=== PATIENT | female | born 1990 | race American Indian/Alaskan Native ===

== ENCOUNTER 2017-06-17 15:30 | Emergency (ER) | payer MEDICAID ==
[2017-06-17] MEDS ORDERED: Sodium Chloride 0.9% 1,000 ML IV ONE (16:15)
[2017-06-17] MEDS ORDERED: Iopamidol 755 Mg/ML 100 ML Bottle IV ONE (16:47)
[2017-06-17] MEDS ORDERED: HYDROmorphone 2 MG/ML SDV IM ONE (18:10)
[2017-06-17] MEDS ORDERED: Acetaminophen/oxyCODONE 325-5 MG Tab PO ONE (18:15)
[2017-06-17] MEDS ORDERED: Ondansetron 8 MG Tab.DIS PO ONE (18:35)
[2017-06-17 19:08] VITALS: BP 128/72
--- NOTE | 2017-06-19 10:18 | ER ---
DATE SEEN: 06/17/2017 CORRECTION: The patient's ultrasound is not available on June 18, at 1300 hours; but is June 19, at 1300 hours. The patient was seen at 1550 hours and has a prescription written for Percocet 20 tablets one q.4-6 hours p.r.n. for pain. If she has marked pain in the interval that is excessive, she is to return to the ER immediately. /[id number] EDWIN/TESS DOMINIQUE
--- NOTE | 2017-06-20 11:05 | ER ---
DATE SEEN: 06/17/2017 HISTORY OF PRESENT ILLNESS: The patient had 3 days' duration of right lower quadrant abdominal pain, this is increasing. She has also midepigastric discomfort. She has diarrhea for the past week. She has no recent antibiotic use. (No suggestion rational to be concerned that she might have Clostridium difficile.) However, it can occur spontaneously without having been exposed to antibiotics. It can be exposed by aforementioned environment. The pain in her right lower quadrant increases with walking. Last menstrual period was 06/03/2017. She is a 4, para 4-0-0-4. She is a single parent. She smokes half a pack of cigarettes per day. No diabetes, heart disease, high blood pressure, or asthma. Currently, her pain is 9/10 in intensity. No previous history of renal stones, dehydration, alcohol in excess, or recent fever. REVIEW OF SYSTEMS: Negative except as noted above. Denies sinusitis, sore throat, cough, chest pain, shortness of breath, recent nausea, vomiting, or constipation. She has diarrhea, but that is not new for her. Denies frequency, urgency, or dysuria. Denies hematuria. Has [id number] new flank pain on the right side, but most of her pain is in the right lower quadrant. Denies musculoskeletal complaints. Denies psychiatric issues. NEURO: Denies paresis, weakness, or numbness. PHYSICAL EXAMINATION: VITAL SIGNS: Blood pressure 116/82, heart rate 101, respirations 18, oxygen saturation 98% on room air, and temperature 36.6 degrees. CONSTITUTIONAL: The patient is overweight, appropriately dressed. Wears glasses. She is attended by her mother. She has fair dentition. PHARYNX: Without erythema. No cervical adenopathy. No thyromegaly. TMs negative. Nares negative. LUNGS: Clear without rales, rhonchi, or wheezes. HEART: S1, S2. No irregular rate and rhythm. No sinus tachycardia. ABDOMEN: Soft. Mild guarding, right lower quadrant. No rebound. No heel tap rebound. No CVA percussion tenderness. PELVIC: Exam not performed. DIAGNOSTIC STUDIES: A CT was performed of the abdomen and demonstrated a 7 x 5 cm right ovarian cyst. She has a mild amount of free fluid in the pelvis. Liver, no focal abnormalities noted. Right adrenal gland has attenuated lesion, either lipoma or myolipoma and similar in the left adrenal gland. Pancreas is negative. A 7-mm calcification in the superior aspect of the left kidney, could reflect calcification of the outer cortex or a tiny cyst or nonobstructive intrarenal calculus. No ureteral dilation. No hydroureter noted. No stones noted. There is a right lower lobe pulmonary nodule, 3.5 mm, it will need further followup. DIAGNOSES: 1. Right ovarian cyst causing her pain. 2. Rule out torsion, right ovarian cyst. The patient's ovarian cyst with possible torsion has been discussed with the patient. If it is completely torsed it could cause infarction and require surgical extirpation, and/or she potentially could lose her ovary. She would like not to go to a different medical center for ultrasound. Ultrasound is not available this evening. It will be done after 1300 hours, 06/18/2017. The patient has received 2 mg of Dilaudid IV for pain relief and also a liter of normal saline, and also will be getting Percocet for pain relief. Follow up tomorrow and get further ultrasound studies done. Once this is completed, she should talk to the ER doctor in the emergency room at [facility]. If she is markedly worse, she may return to the ED this evening. /[id number] EDWIN/TESS
== END 2017-06-17 19:20 | disposition home or self-care (01) ==
LOC: FB.ED 15:30
DX: N83.201 Unspecified ovarian cyst, right side (principal); F17.210 Nicotine dependence, cigarettes, uncomplicated
CPT/HCPCS: 36415; 74177; 80053; 81001; 81025; 85025; 96360; 96372; 99284; A9270; J1170; J7040; Q9967

== ENCOUNTER 2017-07-19 07:49 | Day surgery (SDC) | payer MEDICAID ==
[2017-07-19] MEDS ORDERED: Lactated Ringers 1,000 ML IV SCH (08:15)
[2017-07-19] MEDS ORDERED: Sodium Chloride 0.9% 10 ML Syringe FLUSH PRN (08:15)
[2017-07-19] MEDS ORDERED: Midazolam 1 MG/ML 2 ML SDV IV ONE (09:50)
[2017-07-19] MEDS ORDERED: Propofol 200 MG/20 ML SDV IV ONE (09:50)
[2017-07-19] MEDS ORDERED: Lidocaine 2% 100 MG/5 ML Syringe IVPUSH ONE (09:50)
--- NOTE | 2017-07-19 10:18 | PCM.OPNOTE ---
- General Post-Op/Procedure Note Date of Surgery/Procedure: 07/19/17 Operative Procedure(s): egd with bx Findings: gastritis hiatal hernia ?esophageal hyperplasia Pre Op Diagnosis: epigastric abd pain Post-Op Diagnosis: gastritis. hiatal hernia. ?esophageal hyperplasia Anesthesia Technique: MAC Primary Surgeon: Ramu Lloyd Anesthesia Provider: Andrew Draper Pathology: gastric distal esophagus Complications: None Condition: Good Free Text/Narrative:: see dictation
--- NOTE | 2017-07-19 10:32 | OR ---
DATE OF OPERATION: 07/19/2017 SURGEON: Ramu Lloyd MD PROCEDURE PERFORMED: Esophagogastroduodenoscopy with cold forceps biopsy. PREOPERATIVE DIAGNOSIS: Epigastric abdominal pain. POSTOPERATIVE DIAGNOSIS: Gastritis, small hiatal hernia, questionable hyperplastic polyps of the esophagus. INDICATIONS FOR PROCEDURE: This is a 27-year-old female who was referred with a history of epigastric abdominal discomfort. She was offered and accepted an EGD. DESCRIPTION OF PROCEDURE: After an excellent IV sedation was administered, bite block was inserted. Flexible endoscope was passed down the esophagus without difficulty into the stomach. Stomach was insufflated. Scope was passed through the pylorus to the second portion of the duodenum and slowly withdrawn. The following findings were noted: The duodenum was unremarkable. Stomach demonstrated a small hiatal hernia. Diffuse gastritis was noted, multiple biopsies were taken. Distal esophagus, GE junction measured approximately 40 cm. Throughout the entire esophagus, there were multiple small polypoid lesions very suggestive of hyperplasia. Random biopsies were taken throughout, and this was submitted in one container. Otherwise, the esophageal exam was unremarkable. Stomach was deflated. Scope was removed. The patient tolerated the procedure well, and was taken to recovery in good condition. /[id number] /MODL
[2017-07-19 11:34] VITALS: BP 113/72
== END 2017-07-19 11:10 | disposition home or self-care (01) ==
LOC: FB.SDS 07:49
PROVIDERS: ATTEND Surgery
DX: K29.50 Unspecified chronic gastritis without bleeding (principal); K20.9 Esophagitis, unspecified; K44.9 Diaphragmatic hernia without obstruction or gangrene; Z88.8 Allergy status to other drugs, medicaments and biological substances; Z79.899 Other long term (current) drug therapy; Z90.49 Acquired absence of other specified parts of digestive tract; F17.210 Nicotine dependence, cigarettes, uncomplicated
CPT/HCPCS: 43239; 81025; 88305; 88313; 88342; J2250; J2704; J7120

== ENCOUNTER 2018-02-21 21:00 | Emergency (ER) | payer MEDICAID ==
[2018-02-21] MEDS ORDERED: hydrOXYzine HCl 50 MG/ML SDV IM ONE (21:18)
[2018-02-21] MEDS ORDERED: Meperidine PF 50 MG/ML Syringe IM ONE (21:18)
[2018-02-21 21:45] VITALS: BP 135/86
--- NOTE | 2018-02-22 00:16 | ER ---
DATE SEEN: 02/21/2018 REASON FOR VISIT: Headache. HISTORY OF PRESENT ILLNESS: This is a 27-year-old female complaining of pounding headache since this morning on the left side. The pain is pulsating and around the left ear. Nothing seems to help. Associated with some photosensitivity typical of cluster headaches. REVIEW OF SYSTEMS: Denies fever or chills. No chest pain. MEDICATIONS: Reviewed. PAST MEDICAL HISTORY: Please see the electronic record. PHYSICAL EXAMINATION: VITAL SIGNS: Blood pressure is normal, pulse is 104, and temp 98.2. HEAD: Normocephalic. EYES: Normal. Pupils are equal and reactive to light. EARS: TMs intact. Canals patent. NECK: Supple. NEUROLOGIC: Normal. IMPRESSION: Headache. TREATMENT: Demerol and Vistaril. Fluids and follow up p.r.nLona /[id number] MARY/TESS
== END 2018-02-21 21:56 | disposition home or self-care (01) ==
LOC: FB.ED 21:00
DX: R51 Headache (principal)
CPT/HCPCS: 96372; 99283; J2175; J3410

== ENCOUNTER 2018-03-23 18:34 | Emergency (ER) | payer MEDICAID ==
[2018-03-23] MEDS ORDERED: Ondansetron 8 MG Tab.DIS PO ONE (18:41)
[2018-03-23] MEDS ORDERED: SUMAtriptan 6 MG/0.5 ML SDV SUBCUT STA (18:42)
--- NOTE | 2018-03-23 18:46 | EDM.PDOC ---
ED HPI GENERAL MEDICAL PROBLEM - General Stated Complaint: headache Time Seen by Provider: 03/23/18 18:34 Source of Information: Reports: Patient, Family History Limitations: Reports: Other (poor historian) - History of Present Illness INITIAL COMMENTS - FREE TEXT/NARRATIVE: 27 y.o.w.f came with her 2 children and mom to the ed due to nausea, photophobia and headache. Pt stated, she was diagnosed with cluster headache and gets always Dilaudid when she goes to the ED. No trauma. No vomiting no other acute medical issues. BP 111/81 Temp 36.7 RR 16 Pulse 81 Pulse ox 98% Onset Date: 03/23/18 Onset Time: 12:00 Duration: Hour(s):, Constant Location: Reports: Head Quality: Reports: Burning, Dull, Pressure, Stabbing, Throbbing Severity: Moderate Improves with: Reports: Medication (Dilaudid), Other (dilaudid) Context: Reports: Other Associated Symptoms: Reports: Other (nausea) Headache Pain Score (Numeric/FACES): 10 - Related Data Allergies Allergy/AdvReac Type Severity Reaction Status Date / Time ketorolac tromethamine Allergy Seizure Verified 02/21/18 21:28 [From Toradol] morphine Allergy Abdominal Verified 02/21/18 21:28 Pain Home Meds: Home Meds NK [No Known Home Meds] 02/21/18 [History] Past Medical History HEENT History: Reports: Impaired Vision Cardiovascular History: Reports: None Other Cardiovascular History: patient denies any heart problems Respiratory History: Reports: None Other Respiratory History: HX 11 YR SMOKER Gastrointestinal History: Reports: GERD, Other (See Below) Other Gastrointestinal History: gallbladder disease Genitourinary History: Reports: None 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: Musculoskeletal History: Reports: None Neurological History: Reports: Other (See Below) Other Neuro History: CLUSTER HEADACHE SYNDROME, COGNITIVE DEVELOPMENTAL DELAY Psychiatric History: Reports: Addiction, Developmental Delay Other Psychiatric History: NICOTINE ADDICATION AND EXCESSIVE CAFFINE ABUSE Endocrine/Metabolic History: Reports: Obesity/BMI 30+ Hematologic History: Reports: Anemia Immunologic History: Reports: None Oncologic (Cancer) History: Reports: None Dermatologic History: Reports: None - Past Surgical History Head Surgeries/Procedures: Reports: None HEENT Surgical History: Reports: Tonsillectomy Cardiovascular Surgical History: Reports: None Respiratory Surgical History: Reports: None GI Surgical History: Reports: Cholecystectomy Endocrine Surgical History: Reports: None Dermatological Surgical History: Reports: None Social & Family History - Family History Family Medical History: Noncontributory - Caffeine Use Caffeine Use: Reports: Coffee, Soda ED ROS GENERAL - Review of Systems Review Of Systems: See Below Constitutional: Reports: No Symptoms HEENT: Reports: No Symptoms, Other (H/A and nausea) Respiratory: Reports: No Symptoms Cardiovascular: Reports: No Symptoms Endocrine: Reports: No Symptoms GI/Abdominal: Reports: No Symptoms : Reports: No Symptoms Musculoskeletal: Reports: No Symptoms Skin: Reports: No Symptoms Neurological: Reports: No Symptoms Psychiatric: Reports: No Symptoms Hematologic/Lymphatic: Reports: No Symptoms Immunologic: Reports: No Symptoms ED EXAM, GENERAL - Physical Exam Exam: See Below Exam Limited By: Other (poor historian) General Appearance: Obese Eye Exam: Bilateral Eye: Normal Inspection Ears: Normal External Exam Ear Exam: Bilateral Ear: Auricle Normal Nose: Normal Inspection, Normal Mucosa, No Blood Throat/Mouth: Normal Inspection, Normal Lips, Normal Gums, Normal Oropharynx, Normal Voice, No Airway Compromise Head: Atraumatic, Normocephalic Neck: Normal Inspection, Supple, Non-Tender, Full Range of Motion Respiratory/Chest: No Respiratory Distress, Lungs Clear, Normal Breath Sounds, No Accessory Muscle Use, Chest Non-Tender Cardiovascular: Normal Peripheral Pulses, Regular Rate, Rhythm, No Edema, No Gallop, No JVD, No Murmur, No Rub Peripheral Pulses: 1+: Brachial (R) GI/Abdominal: Normal Bowel Sounds, Soft, Non-Tender, No Organomegaly, No Distention, No Abnormal Bruit, No Mass, Pelvis Stable (Female) Exam: Deferred Rectal (Female) Exam: Deferred Back Exam: Normal Inspection, Full Range of Motion Extremities: Normal Inspection, Normal Range of Motion, Non-Tender, No Pedal Edema, Normal Capillary Refill Neurological: Alert, Oriented, CN II-XII Intact, Normal Cognition, Normal Gait, No Motor/Sensory Deficits Psychiatric: Normal Affect, Normal Mood Skin Exam: Warm, Dry, Intact, Normal Color, No Rash Lymphatic: No Adenopathy Course - Vital Signs Text/Narrative:: 27 y.o.w.f came with her 2 children and mom to the ed due to nausea, photophobia and headache. Pt stated, she was diagnosed with cluster headache and gets always Dilaudid when she goes to the ED. No trauma. No vomiting no other acute medical issues. BP 111/81 Temp 36.7 RR 16 Pulse 81 Pulse ox 98% PE: obese w f with headache Impression: Cluster H/A Tx: Zofran. Imitrex, NS Solumedrol, Dilaudid. Please see note below 9.05 pm: Consultation Dr. Zamorano.........Neurologist, Ericka Burnett: Give whatever brings her out of your ED, Dilaudid is ok. Reexam: Improved Plan: D/C with instructions Last Recorded V/S: Last Vital Signs Temp 36.7 C 03/23/18 18:38 Pulse 84 03/23/18 18:38 Resp 16 03/23/18 18:38 BP 111/81 03/23/18 18:38 Pulse Ox 100 03/23/18 18:38 - Orders/Labs/Meds Meds: Medications Discontinued Medications Generic Name Dose Route Start Last Admin Trade Name Vero PRN Reason Stop Dose Admin Hydromorphone HCl 0.25 mg 03/23/18 21:07 03/23/18 21:21 Dilaudid IVPUSH 03/23/18 21:08 0.25 mg ONETIME ONE Administration Sodium Chloride 1,000 mls @ 999 mls/hr 03/23/18 19:18 03/23/18 20:01 Normal Saline IV 03/23/18 20:18 999 mls/hr .BOLUS ONE Administration Methylprednisolone Sodium Succinate 125 mg 03/23/18 19:19 03/23/18 20:01 Solu-Medrol IVPUSH 03/23/18 19:20 125 mg ONETIME ONE Administration Ondansetron HCl 8 mg 03/23/18 18:41 03/23/18 19:00 Zofran Odt PO 03/23/18 18:42 8 mg ONETIME ONE Administration Sumatriptan Succinate 6 mg 03/23/18 18:42 03/23/18 19:02 Imitrex SUBCUT 03/23/18 18:43 6 mg ONETIME STA Administration Departure - Departure Time of Disposition: 21:27 Disposition: Home, Self-Care 01 Condition: Good Clinical Impression: Cluster headache, episodic Qualifiers: Intractability: intractable Qualified Code(s): G44.011 - Episodic cluster headache, intractable - Discharge Information *PRESCRIPTION DRUG MONITORING PROGRAM REVIEWED*: Yes *COPY OF PRESCRIPTION DRUG MONITORING REPORT IN PATIENT RONAN: Yes Instructions: Recurrent Migraine Headache, [id number] Referrals: PCP,None [Primary Care Provider] - Forms: ED Department Discharge, ED Return to Work/School Form Additional Instructions: Please f/u with your PMD or neurologist, please cont your meds, please be observed by your mom for next 8 hours, please come back to the ed if your symptoms get worse acutely
[2018-03-23] MEDS ORDERED: Sodium Chloride 0.9% 1,000 ML IV ONE (19:18)
[2018-03-23] MEDS ORDERED: methylPREDNISolone Sodium Succinate 125 MG/2 ML SDV IVPUSH ONE (19:19)
[2018-03-23 19:31] VITALS: BP 111/81
[2018-03-23] MEDS ORDERED: HYDROmorphone 2 MG/ML SDV IVPUSH ONE (21:07)
== END 2018-03-23 21:40 | disposition home or self-care (01) ==
LOC: FB.ED 18:34
DX: G44.011 Episodic cluster headache, intractable (principal); Z88.5 Allergy status to narcotic agent; Z88.6 Allergy status to analgesic agent
CPT/HCPCS: 96361; 96372; 96374; 99283; A9270; J1170; J2930; J3030; J7030

== ENCOUNTER 2018-09-03 01:57 | Emergency (ER) | payer MEDICAID ==
[2018-09-03] MEDS ORDERED: SUMAtriptan 6 MG/0.5 ML SDV SUBCUT ONE (02:09)
[2018-09-03] MEDS ORDERED: Ondansetron 8 MG Tab.DIS PO ONE (02:09)
--- NOTE | 2018-09-03 02:14 | EDM.PDOC ---
ED HPI GENERAL MEDICAL PROBLEM - General Stated Complaint: HEADACHE Time Seen by Provider: 09/03/18 01:57 Source of Information: Reports: Patient, Family History Limitations: Reports: No Limitations - History of Present Illness INITIAL COMMENTS - FREE TEXT/NARRATIVE: 28 y.o.NA came to the ed due to a classic migraine H/A with Nausea, photophobia and pain behind her left and right eye. No trauma, pt denies . No F/C no other acute medical issues. BP 140/94 RR 18 Pulse ox 100% on RA Temp 36.8 Pulse 105 Onset Date: 09/02/18 Onset Time: 21:00 Duration: Hour(s):, Getting Worse, Intermittent Location: Reports: Head Quality: Reports: Ache, Burning, Dull, Pressure, Same as Previous Episode, Stabbing, Throbbing Severity: Moderate Improves with: Reports: None Worsens with: Reports: Other (light) Context: Reports: Other Associated Symptoms: Reports: Other (nausea, photophobia) headache Pain Score (Numeric/FACES): 10 - Related Data Allergies Allergy/AdvReac Type Severity Reaction Status Date / Time ketorolac tromethamine Allergy Seizure Verified 09/03/18 02:06 [From Toradol] morphine Allergy Abdominal Verified 09/03/18 02:06 Pain Home Meds: Home Meds NK [No Known Home Meds] 09/03/18 [History] Past Medical History HEENT History: Reports: Impaired Vision Cardiovascular History: Reports: None Other Cardiovascular History: patient denies any heart problems Respiratory History: Reports: None Other Respiratory History: HX 11 YR SMOKER Gastrointestinal History: Reports: GERD, Other (See Below) Other Gastrointestinal History: gallbladder disease Genitourinary History: Reports: None 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: Musculoskeletal History: Reports: None Neurological History: Reports: Other (See Below) Other Neuro History: CLUSTER HEADACHE SYNDROME, COGNITIVE DEVELOPMENTAL DELAY Psychiatric History: Reports: Addiction, Developmental Delay Other Psychiatric History: NICOTINE ADDICATION AND EXCESSIVE CAFFINE ABUSE Endocrine/Metabolic History: Reports: Obesity/BMI 30+ Hematologic History: Reports: Anemia Immunologic History: Reports: None Oncologic (Cancer) History: Reports: None Dermatologic History: Reports: None - Past Surgical History Head Surgeries/Procedures: Reports: None HEENT Surgical History: Reports: Tonsillectomy Cardiovascular Surgical History: Reports: None Respiratory Surgical History: Reports: None GI Surgical History: Reports: Cholecystectomy Endocrine Surgical History: Reports: None Dermatological Surgical History: Reports: None Social & Family History - Family History Family Medical History: Noncontributory - Caffeine Use Caffeine Use: Reports: Coffee ED ROS GENERAL - Review of Systems Review Of Systems: See Below Constitutional: Reports: No Symptoms HEENT: Reports: No Symptoms Respiratory: Reports: No Symptoms Cardiovascular: Reports: No Symptoms Endocrine: Reports: No Symptoms GI/Abdominal: Reports: Nausea : Reports: No Symptoms Musculoskeletal: Reports: No Symptoms Skin: Reports: No Symptoms Neurological: Reports: Headache Psychiatric: Reports: No Symptoms Hematologic/Lymphatic: Reports: No Symptoms Immunologic: Reports: No Symptoms - Physical Exam Exam: See Below Exam Limited By: No Limitations General Appearance: Alert, WD/WN, Moderate Distress, Obese Eye Exam: Bilateral Eye: Normal Inspection Ears: Normal External Exam, Normal Canal Nose: Normal Inspection, Normal Mucosa Throat/Mouth: Normal Inspection, Normal Lips, Normal Voice, No Airway Compromise Head Exam: Atraumatic, Normocephalic Neck: Normal Inspection, Supple, Non-Tender, Full Range of Motion Respiratory/Chest: No Respiratory Distress, Lungs Clear, Normal Breath Sounds, Chest Non-Tender Cardiovascular: Normal Peripheral Pulses, Regular Rate, Rhythm, No Edema, No Gallop, No JVD, No Murmur, No Rub GI/Abdominal: Normal Bowel Sounds, Soft, Non-Tender, No Organomegaly, No Distention, No Abnormal Bruit, No Mass, Pelvis Stable (Female) Exam: Deferred Rectal (Female) Exam: Deferred Neuro Exam (Abbreviated): Alert, Oriented, CN II-XII Intact, Normal Cognition, Normal Gait, No Motor/Sensory Deficits Back Exam: Normal Inspection, Full Range of Motion Extremities: Normal Inspection, Normal Range of Motion, Non-Tender, Normal Capillary Refill Psychiatric: Depressed Mood, Tearful Skin Exam: Warm, Dry, Intact, Normal Color, No Rash Course - Vital Signs Text/Narrative:: 28 y.o.NA came to the ed due to a classic migraine H/A with Nausea, photophobia and pain behind her left and right eye. No trauma, pt denies . No F/C no other acute medical issues. BP 140/94 RR 18 Pulse ox 100% on RA Temp 36.8 Pulse 105 PE: Obese 28 y.o. NA with a Nigraine H/A, kenig/Bull neg Impression: Classic Migraine headache Tx: Imitrex, Zofran. Vistaril Reexam: 70% improvement, wants to be D/C'd Plan: D/C with instructions Last Recorded V/S: Last Vital Signs Temp 36.7 C 09/03/18 01:57 Pulse 107 H 09/03/18 01:57 Resp 18 09/03/18 01:57 BP 140/94 H 09/03/18 01:57 Pulse Ox 100 09/03/18 01:57 - Orders/Labs/Meds Meds: Medications Discontinued Medications Generic Name Dose Route Start Last Admin Trade Name Vero PRN Reason Stop Dose Admin Hydroxyzine HCl 50 mg 09/03/18 02:44 09/03/18 02:47 Vistaril IM 09/03/18 02:45 50 mg ONETIME ONE Administration Ondansetron HCl 8 mg 09/03/18 02:09 09/03/18 02:16 Zofran Odt PO 09/03/18 02:10 8 mg ONETIME ONE Administration Sumatriptan Succinate 6 mg 09/03/18 02:09 09/03/18 02:15 Imitrex SUBCUT 09/03/18 02:10 6 mg ONETIME ONE Administration Departure - Departure Time of Disposition: 03:24 Disposition: Home, Self-Care 01 Condition: Good Clinical Impression: Migraine Qualifiers: Migraine type: other Status migrainosus presence: without status migrainosus Intractability: not intractable Qualified Code(s): G43.809 - Other migraine, not intractable, without status migrainosus - Discharge Information Instructions: Migraine Headache, [id number] Referrals: Syd Gorman MD [Primary Care Provider] - Forms: ED Department Discharge Additional Instructions: Please cont your current meds, please f/u, come back if your symptom get worse acutely
[2018-09-03] MEDS ORDERED: hydrOXYzine HCl 50 MG/ML SDV IM ONE (02:44)
[2018-09-03 07:25] VITALS: BP 123/87
== END 2018-09-03 03:32 | disposition home or self-care (01) ==
LOC: FB.ED 01:57
DX: G43.809 Other migraine, not intractable, without status migrainosus (principal); Z87.891 Personal history of nicotine dependence; Z88.6 Allergy status to analgesic agent; Z88.5 Allergy status to narcotic agent
CPT/HCPCS: 96372; 99283; A9270-GY; J3030; J3410

== ENCOUNTER 2018-12-06 17:30 | Emergency (ER) | payer MEDICAID ==
[2018-12-06] MEDS ORDERED: Alum Hydroxide/Mag Hydroxide 15 ML, Lidocaine 2% 15 ML PO ONE ×2 (17:47)
--- NOTE | 2018-12-06 17:49 | EDM.PDOC ---
ED HPI GENERAL MEDICAL PROBLEM - General Stated Complaint: LOWER ABD PAIN Time Seen by Provider: 12/06/18 17:30 Source of Information: Reports: Patient, Family History Limitations: Reports: No Limitations - History of Present Illness INITIAL COMMENTS - FREE TEXT/NARRATIVE: 28 y.o.w.f came with her mom to the ED due to lower and mid upper abd. pain. She has chronic low back pain a swell with pain radiating to her lower extremities for several weeks, no stool or urine incontinence. She has discomfort at her right flank as well for several weeks. No trauma. GB was taken out several years ago. Pt has a H/O migraine H/A as well. No CP, no SOB, mild nausea, no vomiting, no other acute med issues. BP 109/61 Pulse 106 RR 18 Pulse ox 100% on RA Temp 36.4 Onset Date: 11/28/18 Onset Time: 09:00 Duration: Day(s):, Week(s):, Getting Worse, Intermittent Location: Reports: Abdomen Quality: Reports: Burning Severity: Moderate Improves with: Reports: Rest Worsens with: Reports: Movement Context: Reports: Other Associated Symptoms: Reports: No Other Symptoms Abdominal Pain Score (Numeric/FACES): 10 - Related Data Allergies Allergy/AdvReac Type Severity Reaction Status Date / Time ketorolac tromethamine Allergy Seizure Verified 12/06/18 18:22 [From Toradol] morphine Allergy Abdominal Verified 12/06/18 18:22 Pain Home Meds: Home Meds Ciprofloxacin HCl [Cipro] 500 mg PO BID #20 tablet 12/06/18 [Rx] Omeprazole 40 mg PO BEDTIME #30 cap.sr 12/06/18 [Rx] Ondansetron [Zofran ODT] 4 mg PO Q6H PRN #12 tab.dis 12/06/18 [Rx] Past Medical History HEENT History: Reports: Impaired Vision Cardiovascular History: Reports: None Other Cardiovascular History: patient denies any heart problems Respiratory History: Reports: None Other Respiratory History: HX 11 YR SMOKER Gastrointestinal History: Reports: GERD, Other (See Below) Other Gastrointestinal History: gallbladder disease Genitourinary History: Reports: None FOLLOW UP SPECIALIST History: Reports: Musculoskeletal History: Reports: None Neurological History: Reports: Other (See Below) Other Neuro History: CLUSTER HEADACHE SYNDROME, COGNITIVE DEVELOPMENTAL DELAY Psychiatric History: Reports: Addiction, Developmental Delay Other Psychiatric History: NICOTINE ADDICATION AND EXCESSIVE CAFFINE ABUSE Endocrine/Metabolic History: Reports: Obesity/BMI 30+ Hematologic History: Reports: Anemia Immunologic History: Reports: None Oncologic (Cancer) History: Reports: None Dermatologic History: Reports: None - Past Surgical History Head Surgeries/Procedures: Reports: None HEENT Surgical History: Reports: Tonsillectomy Cardiovascular Surgical History: Reports: None Respiratory Surgical History: Reports: None GI Surgical History: Reports: Cholecystectomy Endocrine Surgical History: Reports: None Dermatological Surgical History: Reports: None Social & Family History - Family History Family Medical History: Noncontributory - Caffeine Use Caffeine Use: Reports: Coffee ED ROS GENERAL - Review of Systems Review Of Systems: See Below Constitutional: Reports: No Symptoms HEENT: Reports: No Symptoms Respiratory: Reports: No Symptoms Cardiovascular: Reports: No Symptoms Endocrine: Reports: No Symptoms GI/Abdominal: Reports: Abdominal Pain (mid upper and suprapubic ) : Reports: No Symptoms Musculoskeletal: Reports: Back Pain (chronic with pain ) Skin: Reports: No Symptoms Neurological: Reports: Weakness Psychiatric: Reports: No Symptoms Hematologic/Lymphatic: Reports: No Symptoms Immunologic: Reports: No Symptoms ED EXAM, GI/ABD - Physical Exam Exam: See Below Exam Limited By: Physical Impairment (morbid obese) General Appearance: Alert, Mild Distress, Obese Eyes: Bilateral: Normal Appearance Ears: Normal External Exam Nose: Normal Inspection, Normal Mucosa Throat/Mouth: Normal Inspection, Normal Lips, Normal Voice, No Airway Compromise Head: Atraumatic, Normocephalic Neck: Normal Inspection, Supple, Non-Tender Respiratory/Chest: No Respiratory Distress, Lungs Clear, Normal Breath Sounds, Chest Non-Tender Cardiovascular: Normal Peripheral Pulses, Regular Rate, Rhythm GI/Abdominal Exam: Normal Bowel Sounds, No Organomegaly, No Distention, No Abnormal Bruit, Tender (tender epigastric) (Female) Exam: Deferred Rectal (Female) Exam: Deferred Back Exam: Normal Inspection, Full Range of Motion Extremities: Normal Inspection, Normal Range of Motion, Non-Tender, Normal Capillary Refill Neurological: Alert, Oriented, CN II-XII Intact, Normal Cognition, Normal Gait Psychiatric: Normal Affect, Normal Mood Skin Exam: Warm, Dry, Intact, Normal Color, No Rash Lymphatic: No Adenopathy Course - Vital Signs Text/Narrative:: 28 y.o.w.f came with her mom to the ED due to lower and mid upper abd. pain. She has chronic low back pain a swell with pain radiating to her lower extremities for several weeks, no stool or urine incontinence. She has discomfort at her right flank as well for several weeks. No trauma. GB was taken out several years ago. Pt has a H/O migraine H/A as well. No CP, no SOB, mild nausea, no vomiting, no other acute med issues. BP 109/61 Pulse 106 RR 18 Pulse ox 100% on RA Temp 36.4 PE: Morbid obese 28 y.o.NA F with dysuria abd h/a with allergy to motrin/toradol Labs: UA pos for UTI, LF elevated s/o Cholecystectomy Impression: UTI, Morbid obesity, Low back pain Tx: Levaquin, Zofran, GI cocktail, 1 Tablet [place] to take home Reexam: Improved Plan: D/C with instructions Last Recorded V/S: Last Vital Signs Temp 36.7 C 12/06/18 17:45 Pulse 108 H 12/06/18 17:45 Resp 18 12/06/18 17:45 BP 109/61 12/06/18 17:45 Pulse Ox 100 12/06/18 17:45 - Orders/Labs/Meds Orders: Active Orders 24 hr Category Date Time Status CULTURE URINE [RM] Stat Lab 12/06/18 18:30 Received Labs: Laboratory Tests 12/06/18 12/06/18 Range/Units 18:30 20:27 Total Bilirubin 0.8 (0.1-1.3) mg/dL Direct Bilirubin 0.40 H (0.10-0.20) mg/dL AST 21 D (5-25) IU/L ALT 38 H (12-36) U/L Alkaline Phosphatase 113 H (56-112) IU/L Total Protein 5.9 L (6.0-8.0) g/dL Albumin 2.7 L (3.5-5.2) g/dL Amylase 23 L (25-115) U/L Urine Color Yellow (YELLOW) Urine Appearance Cloudy (CLEAR) Urine pH 7.0 H (5.0-6.5) Ur Specific [place] 1.015 (1.010-1.025) Urine Protein Negative (NEGATIVE) mg/dL Urine Glucose (UA) Normal (NORMAL) mg/dL Urine Ketones Negative (NEGATIVE) mg/dL Urine Occult Blood Large H (NEGATIVE) Urine Nitrite Negative (NEGATIVE) Urine Bilirubin Small H (NEGATIVE) Urine Urobilinogen >=12 H (NEGATIVE) mg/dL Ur Leukocyte Esterase Small H (NEGATIVE) Urine RBC 20-30 H (0-5) Urine WBC 10-20 H (0-5) Ur Squamous Epith Cells Many H (NS,R,O) Urine Bacteria Many H (NS) Meds: Medications Discontinued Medications Generic Name Dose Route Start Last Admin Trade Name Freq PRN Reason Stop Dose Admin Acetaminophen 650 mg 12/06/18 18:27 12/06/18 18:32 Tylenol PO 12/06/18 18:28 650 mg NOW ONE Administration Hydrocodone Bitart/Acetaminophen 1 tab 12/06/18 21:15 12/06/18 21:20 [place] 325-5 Mg PO 12/06/18 21:16 1 tab ONETIME ONE Administration Al Hydroxide/Mg Hydroxide 15 0 ml 12/06/18 17:47 12/06/18 18:32 ml/ Lidocaine HCl 15 ml PO 12/06/18 17:48 30 ml ONETIME ONE Administration Levofloxacin 500 mg 12/06/18 18:57 12/06/18 19:09 Levaquin PO 12/06/18 18:58 500 mg ONETIME ONE Administration Ondansetron HCl 8 mg 12/06/18 21:00 Zofran Odt PO TID DELFINO Ondansetron HCl 8 mg 12/06/18 18:13 12/06/18 18:27 Zofran Odt PO 12/06/18 18:14 8 mg STAT ONE Administration Departure - Departure Time of Disposition: 21:15 Disposition: Home, Self-Care 01 Condition: Good Clinical Impression: Epigastric abdominal pain UTI (urinary tract infection) Qualifiers: Urinary tract infection type: acute cystitis Back pain Qualifiers: Chronicity: chronic Back pain laterality: midline Sciatica presence: unspecified whether sciatica present - Discharge Information Prescriptions: Ciprofloxacin HCl [Cipro] 500 mg PO BID #20 tablet Omeprazole 40 mg PO BEDTIME #30 cap.sr Ondansetron [Zofran ODT] 4 mg PO Q6H PRN #12 tab.dis PRN Reason: Nausea Referrals: Syd Gorman MD [Primary Care Provider] - Forms: ED Department Discharge, ED Return to Work/School Form Additional Instructions: Please take the meds as recommended, please f/u, please come back if your symptoms get worse acutely - My Orders Last 24 Hours: My Active Orders 12/06/18 18:30 CULTURE URINE [RM] Stat - Assessment/Plan Last 24 Hours: My Active Orders 12/06/18 18:30 CULTURE URINE [RM] Stat
[2018-12-06] MEDS ORDERED: Ondansetron 8 MG Tab.DIS PO ONE (18:13)
[2018-12-06] MEDS ORDERED: Acetaminophen 325 MG Tab PO ONE (18:27)
[2018-12-06] MEDS ORDERED: Levofloxacin 500 MG Tab PO ONE (18:57)
[2018-12-06 19:02] VITALS: BP 109/61
[2018-12-06] MEDS ORDERED: Ondansetron 8 MG Tab.DIS PO SCH (21:00)
[2018-12-06] MEDS ORDERED: Acetaminophen/HYDROcodone 325-5 MG Tab PO ONE (21:15)
== END 2018-12-06 21:25 | disposition home or self-care (01) ==
LOC: FB.ED 17:30
DX: N39.0 Urinary tract infection, site not specified (principal); E66.01 Morbid (severe) obesity due to excess calories; M54.9 Dorsalgia, unspecified; Z88.8 Allergy status to other drugs, medicaments and biological substances; Z88.5 Allergy status to narcotic agent; Z87.891 Personal history of nicotine dependence; Z68.45 Body mass index [BMI] 70 or greater, adult
CPT/HCPCS: 36415; 80076; 81001; 82150; 87086; 99283; A9270

== ENCOUNTER 2020-05-14 01:03 | Emergency (ER) | payer MEDICAID ==
[2020-05-14] MEDS ORDERED: Cephalexin 500 MG Cap PO ONE (01:04)
[2020-05-14] MEDS ORDERED: Acetaminophen/Codeine 300-30 MG Tab PO ONE (01:04)
[2020-05-14] MEDS ORDERED: HYDROmorphone 2 MG/ML SDV IVPUSH ONE (01:11)
[2020-05-14] MEDS ORDERED: Ondansetron 4 MG/2 ML SDV IVPUSH ONE (01:12)
[2020-05-14] MEDS ORDERED: Sodium Chloride 0.9% 1,000 ML IV SCH (01:45)
[2020-05-14] MEDS ORDERED: HYDROmorphone 2 MG/ML SDV IVPUSH PRN (01:57)
[2020-05-14] MEDS ORDERED: LORazepam 2 MG/ML SDV IVPUSH ONE (01:57)
[2020-05-14] MEDS ORDERED: cefTRIAXone 1 GM Vial IVPUSH SCH (02:00)
--- NOTE | 2020-05-14 02:00 | EDM.PDOC ---
ED HPI GENERAL MEDICAL PROBLEM - General Chief Complaint: Abdominal Pain Stated Complaint: ABDOMINAL PAIN Time Seen by Provider: 05/14/20 01:58 Source of Information: Reports: Patient History Limitations: Reports: No Limitations - History of Present Illness INITIAL COMMENTS - FREE TEXT/NARRATIVE: Sudden onset of RLQ pain ,3 hrs ago. Associate with vomiting. No radiation. Also complains of urinary oliguria,frequency. No fever. right lower abdomen Pain Score (Numeric/FACES): 2 - Related Data Allergies Allergy/AdvReac Type Severity Reaction Status Date / Time ketorolac tromethamine Allergy Seizure Verified 05/14/20 01:53 [From Toradol] Home Meds: Home Meds Ciprofloxacin HCl [Cipro] 500 mg PO BID #20 tablet 12/06/18 [Rx] Omeprazole 40 mg PO BEDTIME #30 cap.sr 12/06/18 [Rx] Ondansetron [Zofran ODT] 4 mg PO Q6H PRN #12 tab.dis 12/06/18 [Rx] Past Medical History HEENT History: Reports: Impaired Vision Cardiovascular History: Reports: None Other Cardiovascular History: patient denies any heart problems Respiratory History: Reports: None Other Respiratory History: HX 11 YR SMOKER Gastrointestinal History: Reports: GERD, Other (See Below) Other Gastrointestinal History: gallbladder disease Genitourinary History: Reports: None 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: Musculoskeletal History: Reports: None Neurological History: Reports: Other (See Below) Other Neuro History: CLUSTER HEADACHE SYNDROME, COGNITIVE DEVELOPMENTAL DELAY Psychiatric History: Reports: Addiction, Developmental Delay Other Psychiatric History: NICOTINE ADDICATION AND EXCESSIVE CAFFINE ABUSE Endocrine/Metabolic History: Reports: Obesity/BMI 30+ Hematologic History: Reports: Anemia Immunologic History: Reports: None Oncologic (Cancer) History: Reports: None Dermatologic History: Reports: None - Past Surgical History Head Surgeries/Procedures: Reports: None HEENT Surgical History: Reports: Tonsillectomy Cardiovascular Surgical History: Reports: None Respiratory Surgical History: Reports: None GI Surgical History: Reports: Cholecystectomy Endocrine Surgical History: Reports: None Dermatological Surgical History: Reports: None Social & Family History - Family History Family Medical History: Noncontributory - Caffeine Use Caffeine Use: Reports: Coffee ED ROS GENERAL - Review of Systems Review Of Systems: Comprehensive ROS is negative, except as noted in HPI. ED EXAM, GI/ABD - Physical Exam Exam: See Below Exam Limited By: No Limitations General Appearance: Anxious Head: Atraumatic Neck: Normal Inspection Respiratory/Chest: No Respiratory Distress GI/Abdominal Exam: Normal Bowel Sounds, Soft, Pelvis Stable, Tender (RLQ) (Female) Exam: Deferred Course - Vital Signs Last Recorded V/S: Last Vital Signs Temp 96.7 F L 05/14/20 03:05 Pulse 98 05/14/20 03:05 Resp 17 05/14/20 03:05 BP 141/97 H 05/14/20 03:05 Pulse Ox 98 05/14/20 03:05 - Orders/Labs/Meds Labs: Laboratory Tests 05/14/20 05/14/20 05/14/20 Range/Units 01:25 01:25 01:25 WBC 12.0 (4.5-12.0) X10-3/uL RBC 3.49 (3.23-5.20) x10(6)uL Hgb 12.1 (11.5-15.5) g/dL Hct 33.3 (30.0-51.3) % MCV 95.6 (80-96) fL MCH 34.7 H (27.7-33.6) pg MCHC 36.3 H (32.2-35.4) g/dL RDW 15.9 H (11.5-15.5) % Plt Count 318 (125-369) X10(3)uL MPV 8.4 (7.4-10.4) fL Neut % (Auto) 65.9 (46-82) % Lymph % (Auto) 27.8 (13-37) % [place] % (Auto) 4.1 (4-12) % Eos % (Auto) 1 (1.0-5.0) % Baso % (Auto) 1 (0-2) % Neut # (Auto) 8.0 (1.6-8.3) # Lymph # (Auto) 3.3 (0.6-5.0) # [place] # (Auto) 0.5 (0.0-1.3) # Eos # (Auto) 0.1 (0.0-0.8) # Baso # (Auto) 0.1 (0.0-0.2) # Sodium 142 (135-145) mmol/L Potassium 3.9 (3.5-5.3) mmol/L Chloride 105 (100-110) mmol/L Carbon Dioxide 28 (21-32) mmol/L BUN 9 (7-18) mg/dL Creatinine 0.9 (0.55-1.02) mg/dL Est Cr Clr Drug Dosing TNP Estimated GFR (MDRD) > 60 (>60) BUN/Creatinine Ratio 10.0 (9-20) Glucose 133 H (80-116) mg/dL Calcium 8.6 (8.6-10.2) mg/dL Total Bilirubin 0.4 (0.1-1.3) mg/dL AST 15 D (5-25) IU/L ALT 43 H D (12-36) U/L Alkaline Phosphatase 117 H (56-112) IU/L C-Reactive Protein 2.3 H (0.5-0.9) mg/dL Total Protein 7.1 (6.0-8.0) g/dL Albumin 3.4 L (3.5-5.2) g/dL Globulin 3.7 g/dL Albumin/Globulin Ratio 0.9 Urine Color (YELLOW) Urine Appearance (CLEAR) Urine pH (5.0-6.5) Ur Specific [place] (1.010-1.025) Urine Protein (NEGATIVE) mg/dL Urine Glucose (UA) (NORMAL) mg/dL Urine Ketones (NEGATIVE) mg/dL Urine Occult Blood (NEGATIVE) Urine Nitrite (NEGATIVE) Urine Bilirubin (NEGATIVE) Urine Urobilinogen (NEGATIVE) mg/dL Ur Leukocyte Esterase (NEGATIVE) Urine RBC (0-5) Urine WBC (0-5) Ur Squamous Epith Cells (NS,R,O) Urine Bacteria (NS) Urine HCG, Qual (NEGATIVE) 05/14/20 05/14/20 Range/Units 01:35 01:38 WBC (4.5-12.0) X10-3/uL RBC (3.23-5.20) x10(6)uL Hgb (11.5-15.5) g/dL Hct (30.0-51.3) % MCV (80-96) fL MCH (27.7-33.6) pg MCHC (32.2-35.4) g/dL RDW (11.5-15.5) % Plt Count (125-369) X10(3)uL MPV (7.4-10.4) fL Neut % (Auto) (46-82) % Lymph % (Auto) (13-37) % [place] % (Auto) (4-12) % Eos % (Auto) (1.0-5.0) % Baso % (Auto) (0-2) % Neut # (Auto) (1.6-8.3) # Lymph # (Auto) (0.6-5.0) # [place] # (Auto) (0.0-1.3) # Eos # (Auto) (0.0-0.8) # Baso # (Auto) (0.0-0.2) # Sodium (135-145) mmol/L Potassium (3.5-5.3) mmol/L Chloride (100-110) mmol/L Carbon Dioxide (21-32) mmol/L BUN (7-18) mg/dL Creatinine (0.55-1.02) mg/dL Est Cr Clr Drug Dosing Estimated GFR (MDRD) (>60) BUN/Creatinine Ratio (9-20) Glucose (80-116) mg/dL Calcium (8.6-10.2) mg/dL Total Bilirubin (0.1-1.3) mg/dL AST (5-25) IU/L ALT (12-36) U/L Alkaline Phosphatase (56-112) IU/L C-Reactive Protein (0.5-0.9) mg/dL Total Protein (6.0-8.0) g/dL Albumin (3.5-5.2) g/dL Globulin g/dL Albumin/Globulin Ratio Urine Color [place] (YELLOW) Urine Appearance Cloudy (CLEAR) Urine pH 5.0 (5.0-6.5) Ur Specific [place] 1.030 H (1.010-1.025) Urine Protein 100 H (NEGATIVE) mg/dL Urine Glucose (UA) Normal (NORMAL) mg/dL Urine Ketones 15 H (NEGATIVE) mg/dL Urine Occult Blood Large H (NEGATIVE) Urine Nitrite Positive H (NEGATIVE) Urine Bilirubin Small H (NEGATIVE) Urine Urobilinogen 4 H (NEGATIVE) mg/dL Ur Leukocyte Esterase Small H (NEGATIVE) Urine RBC 75-100 H (0-5) Urine WBC 10-20 H (0-5) Ur Squamous Epith Cells Many H (NS,R,O) Urine Bacteria Many H (NS) Urine HCG, Qual Negative (NEGATIVE) Meds: Medications Discontinued Medications Generic Name Dose Route Start Last Admin Trade Name Freq PRN Reason Stop Dose Admin Acetaminophen/Codeine Phosphate 4 tab 05/14/20 01:04 Tylenol With Codeine No.3 300mg/30mg PO 05/14/20 01:05 .STK-MED ONE Ceftriaxone Sodium 1 gm 05/14/20 02:00 05/14/20 02:27 Rocephin IVPUSH 1 gm Q24H DELFINO Administration Cephalexin 10,000 mg 05/14/20 01:04 Keflex PO 05/14/20 01:05 .STK-MED ONE Hydromorphone HCl 1 mg 05/14/20 01:11 05/14/20 01:16 Dilaudid IVPUSH 05/14/20 01:12 1 mg ONETIME ONE Administration Hydromorphone HCl 1 mg 05/14/20 01:57 05/14/20 02:02 Dilaudid IVPUSH 1 mg Q2H PRN Administration Breakthrough Pain Sodium Chloride 1,000 mls @ 999 mls/hr 05/14/20 01:45 05/14/20 01:45 Normal Saline IV 999 mls/hr ASDIRECTED DELFINO Administration Lorazepam 1 mg 05/14/20 01:57 05/14/20 02:02 Ativan IVPUSH 05/14/20 01:58 1 mg ONETIME ONE Administration Ondansetron HCl 4 mg 05/14/20 01:12 05/14/20 01:16 Zofran IVPUSH 05/14/20 01:13 4 mg ONETIME ONE Administration Departure - Departure Time of Disposition: 08:18 Disposition: Home, Self-Care 01 Clinical Impression: Flank pain, UTI (urinary tract infection) - Discharge Information Instructions: Kidney Stones Referrals: Syd Gorman MD [Primary Care Provider] - Forms: ED Department Discharge Additional Instructions: Take the Cephalexin 1 tab 3 times a day. Take the Tylenol with Codiene as needed for severe pain. Follow up with your primary care provider on Monday. Drink PLENTY OF WATER to help pass the stone out. Call if you have any questions or come back to the ER if symptoms get acutely worse. Sepsis Event Note (ED) - Evaluation Sepsis Screening Result: No Definite Risk - Problem List & Annotations (1) UTI (urinary tract infection) SNOMED Code(s): 69512004 Code(s): N39.0 - URINARY TRACT INFECTION, SITE NOT SPECIFIED Status: Acute Qualifiers: Urinary tract infection type: acute cystitis Hematuria presence: without hematuria Qualified Code(s): N30.00 - Acute cystitis without hematuria (2) Kidney calculi SNOMED Code(s): 51669936 Code(s): N20.0 - CALCULUS OF KIDNEY Status: Acute Priority: High - Problem List Review Problem List Initiated/Reviewed/Updated: Yes - Assessment/Plan Plan: Mónica was treated with IVF,Rocephin IV,Dilaudid. 2 mm stone note,non obstructive. Will DC home on Cephalexin and Tylenol #3. Encouraged see us in the clinic in 24-48h. Push oral fluids
[2020-05-14 03:50] VITALS: BP 141/97; PULSE 98
== END 2020-05-14 03:15 | disposition home or self-care (01) ==
LOC: FB.ED 01:03
DX: N39.0 Urinary tract infection, site not specified (principal); K21.9 Gastro-esophageal reflux disease without esophagitis; E66.9 Obesity, unspecified; Z88.6 Allergy status to analgesic agent; Z79.899 Other long term (current) drug therapy
CPT/HCPCS: 36415; 74176; 80053; 81001; 81025; 85025; 86140; 87086; 96361; 96374; 96375; 96376; 99284; A9270; J0696; J1170; J2060; J2405; J7030

== ENCOUNTER 2024-12-09 06:22 | Day surgery (SDC) | payer MEDICAID ==
[~2024-12-09 06:22] MED LIST: Lactated Ringers 1,000 ML IV SCH; Sodium Chloride 0.9% 10 ML Syringe FLUSH PRN
[2024-12-09] MEDS ORDERED: Ketamine 500 mg/10 ML MDV IV ONE (06:23)
[2024-12-09] MEDS ORDERED: Propofol 200 MG/20 ML SDV IV ONE (06:23)
[2024-12-09] MEDS ORDERED: Glycopyrrolate 0.2 MG/ML 5 ML MDV IV ONE (06:23)
[2024-12-09] MEDS ORDERED: Lidocaine 2% 100 MG/5 ML Syringe IVPUSH ONE (06:23)
[2024-12-09] MEDS ORDERED: Midazolam 1 MG/ML 2 ML SDV IV ONE (06:23)
[2024-12-09] MEDS: Lactated Ringers 1,000 ML IV SCH (06:54)
[2024-12-09] MEDS: Simethicone Drops 40 MG/0.6 ML 30 ML Bottle ONE (07:30)
[2024-12-09 10:21] VITALS: BP 117/78; PULSE 90
[2024-12-10 22:41] LABS: ADENOVIRUS 40/41 PCR Not Detected; ASTROVIRUS PCR Not Detected; CAMPYLOBACTER PCR Not Detected; CRYPTOSPORIDIUM PCR Not Detected; CYCLOSPORA CAYETANENSIS PCR Not Detected; ENTAMOEBA HISTOLYTICA PCR Not Detected; ENTEROAGGREGATIVE E. COLI PCR Not Detected; ENTEROPATHOGENIC E. COLI PCR Not Detected; ENTEROTOXIGENIC E. COLI PCR Not Detected; GIARDIA LAMBLIA PCR Not Detected; NOROVIRUS GI/GII PCR Not Detected; PLESIOMONAS SHIGELLOIDES PCR Not Detected; ROTAVIRUS A PCR Not Detected; SALMONELLA PCR Not Detected; SAPOVIRUS PCR Not Detected; SHIG/ENTEROINVASIVE E COLI PCR Not Detected; SHIGA TOXIN-PRODUC E. COLI PCR Not Detected; VIBRIO CHOLERAE PCR Not Detected; VIBRIO PCR Not Detected; YERSINIA ENTEROCOLITICA PCR Not Detected
[2024-12-12 00:11] LABS: LACTOFERRIN,FECAL BY ELISA Negative (Negative)
== END 2024-12-09 09:30 | disposition home or self-care (01) ==
LOC: FB.SDS 06:22
PROVIDERS: ATTEND Surgery
DX: D12.8 Benign neoplasm of rectum (principal); K63.5 Polyp of colon; K51.40 Inflammatory polyps of colon without complications; F17.210 Nicotine dependence, cigarettes, uncomplicated
CPT/HCPCS: 00811; 45380; 45384; 45385; 81025; 83630; 87507; 88305; A9270; J1596; J2250; J2704; J3490; J7120

== ENCOUNTER 2025-02-01 15:59 | Emergency (ER) | payer MEDICAID ==
[2025-02-01 16:52] VITALS: BP 133/92; PULSE 90
[2025-02-01] MEDS: Cephalexin 500 MG Cap PO ONE (17:25)
== END 2025-02-01 17:35 | disposition home or self-care (01) ==
LOC: FB.ED 15:59
DX: S00.86XA Insect bite (nonvenomous) of other part of head, initial encounter (principal); F17.200 Nicotine dependence, unspecified, uncomplicated; Z90.49 Acquired absence of other specified parts of digestive tract; Z88.8 Allergy status to other drugs, medicaments and biological substances; W57.XXXA Bitten or stung by nonvenomous insect and other nonvenomous arthropods, initial encounter
CPT/HCPCS: 99283; 99284; A9270

== ENCOUNTER 2025-06-11 19:55 | Emergency (ER) | payer MEDICAID ==
[2025-06-11 21:39] LABS: BASOPHILS ABSOLUTE AUTO 0.1 x10-3/uL (0.0-0.1); BASOPHILS PERCENT AUTO 0.8 % (0.2-1.5); EOSINOPHILS ABSOLUTE AUTO 0.1 x10-3/uL (0.0-0.8); EOSINOPHILS PERCENT AUTO 1.2 % (0.6-8.1); LYMPHOCYTES ABSOLUTE AUTO 3.0 x10-3/uL (1.0-4.4); LYMPHOCYTES PERCENT AUTO 26.2 % (18.4-52.1); MEAN PLATELET VOLUME 8.7 fL (7.1-12.4); MONOCYTES ABSOLUTE AUTO 0.4 x10-3/uL (0.3-1.0); MONOCYTES PERCENT AUTO 3.5 % (4.4-15.7); NEUTROPHILS ABSOLUTE AUTO 7.8 x10-3/uL (1.5-6.3); NEUTROPHILS PERCENT AUTO 68.3 % (30.8-76.2); PLATELET COUNT,PLT 242 x10(3)uL (151-488); RED BLOOD CELL COUNT 5.54 x10(6)uL (3.60-5.20); RED CELL DISTRIBUTION WIDTH 15.5 % (12.3-16.5); WHITE BLOOD CELL COUNT,WBC 11.5 x10-3/uL (3.0-10.3)
[2025-06-11 21:44] LABS: GLUCOSE,URINE >1000 mg/dL (NORMAL); OCCULT BLOOD,URINE NEGATIVE (NEGATIVE)
[2025-06-11 21:48] LABS: APPEARANCE,URINE CLEAR (CLEAR); SQUAMOUS EPITHELIAL CELLS,UR FEW (NS,R,O)
[2025-06-11 22:08] LABS: BLOOD UREA NITROGEN,BUN 6 mg/dL (7-18); CARBON DIOXIDE,CO2 27 mmol/L (21-32); CHLORIDE,CL 100 mmol/L (100-110); CREATININE 0.6 mg/dL (0.55-1.02); EST CRCL DRUG DOSING (CG) 122.51 mL/min; ESTIMATED GFR 120 mL/min (>60); GLUCOSE RANDOM 284 mg/dL (80-116); POTASSIUM,K 4.0 mmol/L (3.5-5.3); SODIUM,NA 136 mmol/L (135-145)
[2025-06-11 22:14] LABS: A/G RATIO 0.9; ALANINE AMINOTRANSFERASE,ALT 82 U/L (12-36); ASPARTATE AMNIOTRANSFERASE,AST 62 IU/L (5-25); BILIRUBIN TOTAL 0.5 mg/dL (0.1-1.3); CREATINE KINASE,CK 60 IU/L (60-160); PROTEIN TOTAL,TP 7.3 g/dL (6.0-8.0)
[2025-06-11 22:56] VITALS: BP 133/87; PULSE 98
== END 2025-06-11 22:57 | disposition home or self-care (01) ==
LOC: FB.ED 19:55
DX: S86.912A Strain of unspecified muscle(s) and tendon(s) at lower leg level, left leg, initial encounter (principal); E83.42 Hypomagnesemia; E11.65 Type 2 diabetes mellitus with hyperglycemia; E88.09 Other disorders of plasma-protein metabolism, not elsewhere classified; R79.82 Elevated C-reactive protein (CRP); R79.89 Other specified abnormal findings of blood chemistry; K21.9 Gastro-esophageal reflux disease without esophagitis; F17.210 Nicotine dependence, cigarettes, uncomplicated; Z88.5 Allergy status to narcotic agent; Z88.8 Allergy status to other drugs, medicaments and biological substances; Z79.899 Other long term (current) drug therapy; X58.XXXA Exposure to other specified factors, initial encounter; Y93.89 Activity, other specified
CPT/HCPCS: 36415; 80053; 81001; 82550; 83735; 85025; 85379; 86140; 99283; A9270